=== PATIENT | female | born 1955 | race Caucasian/White ===

== ENCOUNTER → 2018-12-04 | Outpatient (CLI) | payer OTHER ==
[~2018-12-04] MED LIST: ASPI325 PO; ASPI81EC PO; Aspir 8181 MG PO; CARV3.125 PO; CLOP75; FURO40 PO; INS50/50I SC; INSLI100I SC; LISI5 PO; LORA10ER PO; LOVA40 PO; OMEP20ER PO; PIOG30 PO; POTCHL20ER PO; RANI150 PO; ROSU10TA PO; SULTRIDS PO; SULTRIEL PO; UBID100 PO; VALS80 PO; [UNRECOGNIZED DRUG - OTHER]
== END | disposition home or self-care (01) ==
LOC: LAB SHORT 08:21 → LAB 08:21
DX: R30.0 Dysuria (principal)
CPT/HCPCS: 87077; 87086; 87186

== ENCOUNTER → 2018-12-15 | Outpatient (CLI) | payer OTHER ==
[2018-12-15 18:29] LABS: Appearance, Urine Hazy (Clear); Bilirubin, Urine Neg (Neg); Blood, Urine Neg (Neg); Color, Urine Yellow (P-Yellow); Glucose Qualitative, Urine Neg (Normal); Ketones, Urine Neg (Neg); Leukocyte Esterase, Urine 2+ (Neg); Nitrite, Urine Neg (Neg); Protein, Urine Neg (Neg); Urobilinogen, Urine NORM (Normal)
[2018-12-15 18:30] LABS: Bacteria Many /hpf; Red Blood Cells, Urine 0-2 /hpf (0-2); Renal Epithelial Rare /hpf (0-Rare); Squamous Epithelial Cells Few /hpf (Few); Transitional Epithelial Cells Rare /hpf (0-Rare); White Blood Cells, Urine TNTC /hpf (0-5)
== END | disposition home or self-care (01) ==
LOC: LAB SHORT 16:00 → LAB EV 16:00
PROVIDERS: Family Medicine
DX: R35.0 Frequency of micturition (principal)
CPT/HCPCS: 81001; 87077; 87086; 87186

== ENCOUNTER → 2020-07-31 | Outpatient (CLI) | payer OTHER ==
[~2020-07-31] MED LIST changes: -CLOP75; +CLOP75 PO; +Crestor40 MG PO; +EZET10; +FAMO20 PO; +LOSA25 PO; +PLAVIX75 MG PO; +THERA-D2000 UNIT PO
== END | disposition home or self-care (01) ==
LOC: LAB 11:12
DX: L08.0 Pyoderma (principal)
CPT/HCPCS: 87070; 87077; 87147; 87186; 87205

== ENCOUNTER → 2020-08-07 | Outpatient (CLI) | payer OTHER ==
[2020-08-09 14:39] LABS: CORONAVIRUS (COVID19) CSH-NRL Negative (Negative)
== END | disposition home or self-care (01) ==
LOC: LAB 15:30
PROVIDERS: Internal Medicine
DX: Z20.828 Contact with and (suspected) exposure to other viral communicable diseases (principal)
CPT/HCPCS: U0003

== ENCOUNTER 2021-02-14 09:53 | Day surgery (SDC) | payer OTHER ==
[~2021-02-14] VITALS: Ht 175.3 cm; Wt 92.9 kg
[~2021-02-14 09:53] MED LIST changes: -EZET10; -PLAVIX75 MG PO
[2021-02-14] MEDS ORDERED: EZET10 (10:36)
--- NOTE | 2021-02-14 10:41 | NUR ---
02/14/21 1041 Jd Philippe CALL LIGHT WITHIN REACH. PLEDGET AND TETRACAINE DROP PLACED AROUND 1010. WILL CONTINUE TO MONITOR.
[2021-02-20] MEDS ORDERED: THERA-D2000 UNIT PO (14:40)
[2021-02-20] MEDS ORDERED: PLAVIX75 MG PO (14:40)
== END 2021-02-14 12:06 | disposition home or self-care (01) ==
LOC: ORSCSDS 09:53
PROVIDERS: Ophthalmology
PROC: 08RJ3JZ Replacement of Right Lens with Synthetic Substitute, Percutaneous Approach (ICD-10-PCS; principal; 2021-02-14 11:15)
DX: H25.11 Age-related nuclear cataract, right eye (principal); I10 Essential (primary) hypertension; E11.9 Type 2 diabetes mellitus without complications; G47.33 Obstructive sleep apnea (adult) (pediatric); Z87.891 Personal history of nicotine dependence; I25.2 Old myocardial infarction; J45.909 Unspecified asthma, uncomplicated; Z79.899 Other long term (current) drug therapy; Z79.82 Long term (current) use of aspirin
CPT/HCPCS: 82947; J2001; J2250; J3301; J7040; V2632

== ENCOUNTER 2021-02-28 09:36 | Day surgery (SDC) | payer OTHER ==
[~2021-02-28] VITALS: Ht 175.3 cm; Wt 91.2 kg
[~2021-02-28 09:36] MED LIST changes: +EZET10; +PLAVIX75 MG PO
--- NOTE | 2021-02-28 10:02 | NUR ---
02/28/21 1002 Sherie Guillen TETRACAINE DROP IN LEFT EYE AT 1000 PLEDGET PLACED IN LEFT EYE AT 1002
== END 2021-02-28 11:45 | disposition home or self-care (01) ==
LOC: ORSCSDS 09:36
PROVIDERS: Ophthalmology
PROC: 08RK3JZ Replacement of Left Lens with Synthetic Substitute, Percutaneous Approach (ICD-10-PCS; principal; 2021-02-28 11:15)
DX: H25.12 Age-related nuclear cataract, left eye (principal); G47.33 Obstructive sleep apnea (adult) (pediatric); I10 Essential (primary) hypertension; K21.9 Gastro-esophageal reflux disease without esophagitis; E11.9 Type 2 diabetes mellitus without complications; Z79.82 Long term (current) use of aspirin; Z79.899 Other long term (current) drug therapy
CPT/HCPCS: 82947; J2001; J2250; J3010; J3301; J7040; V2632

== ENCOUNTER → 2023-06-22 | Outpatient (CLI) | payer OTHER | END | disposition home or self-care (01) | LOC: LAB 19:03 → LAB SHORT 19:03 | DX: L08.9 Local infection of the skin and subcutaneous tissue, unspecified (principal) | CPT/HCPCS: 87070; 87077; 87147; 87186; 87205 ==